=== PATIENT | male | born 1990 | race Caucasian/White ===

== ENCOUNTER 2019-05-17 16:49 | Emergency (ER) | payer OTHER ==
[2019-05-17] MEDS ORDERED: HYDROCODONE/ACETAMINOPHEN 5-325 MG TABLET PO ONE (17:46)
[2019-05-17] MEDS ORDERED: DIPH/PERTUSS(ACELL)/TETANUS VAC/PF 0.5 ML SYR (>=10YO) IM ONE (17:46)
--- NOTE | 2019-05-17 17:48 | ER Document Report ---
ED Medical Screen (RME) - General Chief Complaint: Hand Injury Stated Complaint: LEFT HAND CAUGHT IN SPRING Time Seen by Provider: 05/17/19 17:41 Notes: Patient is a 29-year-old male who presents to the emergency department with a chief complaint of left hand injury. Patient reports he was working on a garage door around 4 PM when his hand got caught in the spring system. Patient reports he does have a jagged laceration to the dorsal aspect of the left hand. Patient denies numbness or tingling to the left hand. Patient reports his tetanus shot is not up-to-date. - Related Data Allergies/Adverse Reactions: No Known Allergies Allergy (Unverified 05/17/19 17:27) Physical Exam - Vital signs Vitals: Temp Pulse Resp BP Pulse Ox 98.4 F 111 H 20 166/96 H 97 05/17/19 17:01 05/17/19 17:01 05/17/19 17:01 05/17/19 17:01 05/17/19 17:01 - Skin Notes: Patient has a jagged irregular laceration to the dorsal aspect of the left hand. There is an active ooze of blood. Patient does have multiple abrasions and other scratches to the dorsal aspect of the hand. Patient has good flexion- extension of all digits of the left hand, less than 2-second cap refill. Course - Re-evaluation Re-evalutation: 05/17/19 17:48 Wet dressing with Coban applied in triage. Will update Tdap, obtain an x-ray to rule out fracture. Patient will require copious wound irrigation and suture repair. I have greeted and performed a rapid initial assessment of this patient. A comprehensive ED assessment and evaluation of the patient, analysis of test results and completion of the medical decision making process will be conducted by additional ED providers. - Vital Signs Vital signs: Temp Pulse Resp BP Pulse Ox 98.4 F 111 H 20 166/96 H 97 05/17/19 17:01 05/17/19 17:01 05/17/19 17:01 05/17/19 17:05/17/19 17:01
--- NOTE | 2019-05-17 18:21 | RADIOLOGY REPORT (SQ) ---
EXAM DESCRIPTION: HAND LEFT 3 VIEWS COMPLETED DATE/TIME: 05/17/2019 6:08 pm REASON FOR STUDY: left hand got caught in spring of garage door,+lac COMPARISON: None. EXAM PARAMETERS: NUMBER OF VIEWS: Three views. TECHNIQUE: AP, lateral and oblique radiographic images acquired of the left hand. LIMITATIONS: None. FINDINGS: MINERALIZATION: Normal. BONES: No acute fracture or dislocation. No worrisome bone lesions. JOINTS: No effusion. SOFT TISSUES: Mild soft tissue swelling. No radiopaque foreign body. OTHER: No other significant finding. IMPRESSION: NO FRACTURE. TECHNICAL DOCUMENTATION: JOB ID: [id number] [place]-[id number] 2010 [employer]- All Rights Reserved Reading location - IP/workstation name: [email or web address]
[2019-05-17] MEDS ORDERED: LIDOCAINE 2%/EPINEPHRINE INJ 20 ML VIAL INJ ONE (21:09)
[2019-05-17] MEDS ORDERED: OXYCODONE-ACETAMINOPHEN 5-325 MG TABLET PO ONE (21:47)
[2019-05-17] MEDS ORDERED: AMOXICILLIN TR/POT CLAVULANATE 500-125 MG TAB PO ONE (21:47)
[2019-05-17] MEDS ORDERED: BACITRACIN ZINC OINTMENT 15 GM TP ONE (22:02)
--- NOTE | 2019-05-17 22:38 | ER Document Report ---
Entered by BISI LOPEZ SCRIBE 05/17/19 [id number] Acting as scribe for:ZAID BLUM IV, MD ED Hand/Wrist Injury - General Chief Complaint: Hand Injury Stated Complaint: LEFT HAND CAUGHT IN SPRING Time Seen by Provider: 05/17/19 17:41 Primary Care Provider: CHADD HAMILTON DO [ACTIVE STAFF] - 05/19/19 (CALL ON Sunday05/19/2019 TO SCHEDULE FOLLOW UP APPOINTMENT) Mode of Arrival: Ambulatory Information source: Patient Notes: This 29 year old male patient presents to the ED today with complaints of a laceration on the dorsal surface of his left hand due to an injury that occurred around 4:00 PM today. Patient states that he was working on his garage door when his left hand got caught in the spring system. Patient reports pain in that re gion, but denies any trouble moving his digits. Patient states that his tetanus shot is UTD as of this time. - Related Data Allergies/Adverse Reactions: No Known Allergies Allergy (Unverified 05/17/19 17:27) Past Medical History - Social History Smoking Status: Unknown if Ever Smoked Cigarette use (# per day): No Chew tobacco use (# tins/day): No Smoking Education Provided: No Frequency of alcohol use: Occasional Drug Abuse: None Family History: Reviewed & Not Pertinent Patient has suicidal ideation: No Patient has homicidal ideation: No Review of Systems - Review of Systems Constitutional: No symptoms reported EENT: No symptoms reported Cardiovascular: No symptoms reported Respiratory: No symptoms reported Gastrointestinal: No symptoms reported Genitourinary: No symptoms reported Male Genitourinary: No symptoms reported Musculoskeletal: See HPI, Other - Left hand pain Skin: Other - Laceration to left hand Hematologic/Lymphatic: No symptoms reported Neurological/Psychological: No symptoms reported -: Yes All other systems reviewed and negative Physical Exam - Vital signs Vitals: Temp Pulse Resp BP Pulse Ox 98.4 F 111 H 20 166/96 H 97 05/17/19 17:01 05/17/19 17:01 05/17/19 17:01 05/17/19 17:01 05/17/19 17:01 - General General appearance: Alert - HEENT Head: Normocephalic, Atraumatic Eyes: Normal Pupils: PERRL - Respiratory Respiratory status: No respiratory distress Chest status: Nontender Breath sounds: Normal Chest palpation: Normal - Cardiovascular Rhythm: Regular Heart sounds: Normal auscultation Murmur: No - Abdominal Inspection: Normal Distension: No distension Bowel sounds: Normal Tenderness: Nontender - Abdomen soft Organomegaly: No organomegaly - Back Back: Normal, Nontender - Extremities General upper extremity: Normal inspection General lower extremity: Normal inspection Hand: Other - 2 point discrimination intact in all 5 digits of the left hand. Intact flexion of 3rd-5th digit against resistance. Capillary refill < 2 sec in all digits. Putting 5th digit through full range of motion exposes the extensor tendon. Extensor tendor grossly appears intact. Small partial laceration to extensor tendon. - Neurological Neuro grossly intact: Yes - Psychological Associated symptoms: Normal affect, Normal mood - Skin Skin Temperature: Warm Skin Moisture: Dry Skin Color: Normal Skin irregularity: Laceration - 3 cm semilunate laceration on dorsal surface of left hand inferior to the space between the 4th and 5th MCP joint Course - Re-evaluation Re-evalutation: 05/17/19 21:58 Results of ED MSE discussed with patient patient's significant other. Finding of partial left fifth extensor tendon discussed with patient. Finger splint and sling ordered for the patient to keep the tendon in extension and avoid flexion. Patient was told that he needs to follow-up with the referral to Dr. Chu with hand surgery. All questions were answered. - Vital Signs Vital signs: Temp Pulse Resp BP Pulse Ox 98.4 F 111 H 20 166/96 H 97 05/17/19 17:01 05/17/19 17:01 05/17/19 17:01 05/17/19 17:01 05/17/19 17:01 - Diagnostic Test Radiology reviewed: Reports reviewed Discharge - Discharge Clinical Impression: Laceration of left hand Qualifiers: Encounter type: initial encounter Foreign body presence: without foreign body Qualified Code(s): S61.412A - Laceration without foreign body of left hand, initial encounter Extensor tendon laceration of hand with open wound Qualifiers: Encounter type: initial encounter Laterality: left Qualified Code(s): S66.822A - Laceration of other specified muscles, fascia and tendons at wrist and hand level, left hand, initial encounter; S61.402A - Unspecified open wound of left hand, initial encounter Condition: Good Disposition: HOME, SELF-CARE Instructions: Laceration Care ([facility]) Additional Instructions: Return to the Emergency Department without delay if any worse. Tendon Laceration Your cut damaged an underlying tendon. The tendon has been repaired but will not be strong enough for normal use for about four weeks. The goals of treatment will be protection from stress, and restoring mobility once the tendon has healed. Usually a splint will be used to immobilize the tendon. If so, it should NOT be removed without the doctor's permission. [id number] exercises will be prescribed when your doctor decides the tendon is ready for them. This depends on the location and severity of the tendon laceration. If you don't understand what you should do at any point during treatment, call for instructions. Hand Laceration A laceration on the hand can present special problems. It may be difficult to keep the wound dry. Motion of the fingers can disturb the healing edges. Your work may involve exposure to damaging chemicals or water. Keep the wound clean and dry. If you can't keep the cut dry, undisturbed, and free of chemical exposure, please discuss this with the doctor. If any water or chemical gets onto the dressing, remove it, blot the wound dry, then apply a fresh bandage. Dressings should be changed every day. If you feel the stitches pulling as you move the hand, a splint or other form of protection is needed. If any signs of infection occur (swelling, redness, increasing tenderness, red streaks, tender lumps in the armpit, or fever), see the doctor immediately. HOME CARE INSTRUCTIONS & INFORMATION: Thank you for choosing us for your medical needs. We hope you're satisfied with the care you received. After you leave, you must properly care for your problem and, at the same time, observe its progress. Any condition can change. Some illnesses can change rapidly over hours or days. If your condition worsens, return to the Emergency Department or see your physician promptly. ABOUT YOUR X-RAYS AND EKG'S: If you had an EKG or X-rays taken, they have been read by the Emergency Physician. The X-rays and EKG's will also be read by a Radiologist or Corrugator Helper within 24 hours. If discrepancies are noted, you will be notified by telephone. Please be certain the ED has a correct telephone number & address where you can be reached. Also, realize that some fractures or abnormalities do not show up on initial X-rays. If your symptoms continue, see your physician. ABOUT YOUR LABORATORY TEST: If you had laboratory tests, the results have been reviewed by the Emergency Physician. Some test results (for example cultures) may not be available for several days. You will be contacted if any test result shows you need additional treatment. Please be certain the ED has a correct telephone number and address where you can be reached. ABOUT YOUR MEDICATIONS: You will receive instructions on how to take your medicine on the prescription label you receive. Additional information may be provided by the Pharmacy. If you have questions afterwards, call the ED for clarification or further instructions. Some prescribed medications may cause drowsiness. Do not perform tasks such as driving a car or operating machinery without consulting your Pharmacist. If you feel you need a refill of pain medication, your condition will need re-evaluation. Please do not call for a refill of any medication. ABOUT YOUR SIGNATURE: Signature of this document acknowledges to followin. Understanding that you received emergency treatment and that you may be released before al medical problems are known or treated. Please be certain the ED has a correct phone number & address where you can be reached. 2. Acknowledgement that you will arrange for follow-up care as recommended. 3. Authorization for the Emergency Physician to provide information to your follow-up Physician in order to maximize your care. AT ANY TIME, IF YOUR SYMPTOMS CHANGE SIGNIFICANTLY OR WORSEN OR YOU DEVELOP NEW SYMPTOMS, RETURN TO THE EMERGENCY DEPARTMENT IMMEDIATELY FOR RE-EVALUATION. OUR GOAL IS TO PROVIDE EXCELLENT MEDICAL CARE! WE HOPE THAT WE HAVE MET YOUR EXPECTATIONS DURING YOUR EMERGENCY DEPARTMENT VISIT AND THAT YOU FEEL YOU HAVE RECEIVED EXCELLENT CARE! Prescriptions: Oxycodone HCl/Acetaminophen [Percocet 5-325 mg Tablet] 1 tab PO Q6HP PRN #20 tablet PRN Reason: PAIN Oxycodone HCl/Acetaminophen [Percocet 5-325 mg Tablet] 1 tab PO Q6HP PRN #20 tablet PRN Reason: Amox Tr/Potassium Clavulanate [Augmentin 875-125 mg Tablet] 1 tab PO BID #20 tablet Amox Tr/Potassium Clavulanate [Augmentin 875-125 Tablet] 1 tab PO BID 10 Days tablet Forms: Return to Work Referrals: CHADD HAMILTON DO [ACTIVE STAFF] - 05/19/19 (CALL ON Sunday05/19/2019 TO SCHEDULE FOLLOW UP APPOINTMENT) I personally performed the services described in the documentation, reviewed and edited the documentation which was dictated to the scribe in my presence, and it accurately records my words and actions.
[2019-05-17] MEDS ORDERED: HYDROCODONE/ACETAMINOPHEN 5-325 MG (6 TAB/ER DISP) PO PRN (22:44)
[2019-05-17] MEDS ORDERED: LEVOFLOXACIN 750 MG TABLET PO ONE (22:45)
[2019-05-17 23:01] VITALS: BP 135/84
== END 2019-05-17 23:03 | disposition home or self-care (01) ==
LOC: ER 16:49
DX: S61.412A Laceration without foreign body of left hand, initial encounter (principal); S66.822A Laceration of other specified muscles, fascia and tendons at wrist and hand level, left hand, initial encounter; W26.8XXA Contact with other sharp object(s), not elsewhere classified, initial encounter; Y92.009 Unspecified place in unspecified non-institutional (private) residence as the place of occurrence of the external cause; Z23 Encounter for immunization
CPT/HCPCS: 99283; 90471; 73130; 90715; J3490

== ENCOUNTER 2019-05-27 11:14 | Day surgery (SDC) | payer OTHER ==
[~2019-05-27 11:14] MED LIST: CEFAZOLIN SODIUM 2 GM in DEXTROSE 5%-WATER 100 ML IV PRN; DEXAMETHASONE SOD PHOSPHATE INJ 4 MG/1 ML VIAL ONE; FENTANYL CITRATE INJ/PF 100 MCG/2 ML AMPUL ONE; MIDAZOLAM 2 MG/2 ML INJ ONE; ONDANSETRON HCL INJ/PF 4 MG/2 ML SDV ONE; PROPOFOL INJ 200 MG/20 ML VIAL IV ONE
[2019-05-27] MEDS ORDERED: MIDAZOLAM 2 MG/2 ML INJ ONE (12:18)
[2019-05-27 12:31] LABS: ABSOLUTE EOSINOPHILS # (AUTO) 0.1 10^3/uL (0.0-0.6); ABSOLUTE LYMPHOCYTES (AUTO) 1.6 10^3/uL (0.5-4.7); ABSOLUTE MONOCYTES (AUTO) 0.4 10^3/uL (0.1-1.4); ABSOLUTE NEUT (AUTO) 3.5 10^3/uL (1.7-8.2); BASOPHILS % (AUTO) 0.8 % (0-2); EOSINOPHILS % (AUTO) 2.3 % (0-6); HEMATOCRIT 48.4 % (37.9-51.0); HEMOGLOBIN 16.7 g/dL (13.5-17.0); LYMPHOCYTES % (AUTO) 28.2 % (13-45); MEAN CORPUSCULAR HEMOGLOBIN 30.8 pg (27.0-33.4); MEAN CORPUSCULAR HGB CONC 34.5 g/dL (32.0-36.0); MEAN CORPUSCULAR VOLUME 89 fl (80-97); MONOCYTES % (AUTO) 6.5 % (3-13); PLATELET COUNT 148 10^3/uL (150-450); RED BLOOD COUNT 5.42 10^6/uL (4.35-5.55); RED CELL DISTRIBUTION WIDTH 12.6 % (11.5-14.0); SEGMENTED NEUTROPHILS % (AUTO) 62.2 % (42-78); TOTAL CELLS COUNTED % (AUTO) 100 %; WHITE BLOOD COUNT 5.5 10^3/uL (4.0-10.5)
[2019-05-27 12:59] LABS: ANION GAP 8 (5-19); BLOOD UREA NITROGEN 17 mg/dL (7-20); CALCIUM 9.8 mg/dL (8.4-10.2); CARBON DIOXIDE 26 mmol/L (22-30); CHLORIDE 104 mmol/L (98-107); GLUCOSE 90 mg/dL (75-110); POTASSIUM 4.9 mmol/L (3.6-5.0)
[2019-05-27] MEDS ORDERED: BUPIVACAINE HCL 0.5 % INJ/PF 30 ML SDV ONE (15:10)
[2019-05-27] MEDS ORDERED: ONDANSETRON HCL INJ/PF 4 MG/2 ML SDV IV PRN (15:46)
[2019-05-27] MEDS ORDERED: MORPHINE SULFATE 10 MG/ML INJ IV PRN ×2 (15:46→16:16)
[2019-05-27] MEDS ORDERED: DIPHENHYDRAMINE HCL 50 MG/ML VIAL IV PRN (15:46)
[2019-05-27] MEDS ORDERED: MEPERIDINE HCL/PF INJ 25 MG/1 ML DISP.SYRIN IV PRN (15:46)
[2019-05-27] MEDS ORDERED: PROMETHAZINE HCL INJ 25 MG/1 ML VIAL IV PRN ×2 (15:46)
[2019-05-27] MEDS ORDERED: FENTANYL CITRATE INJ/PF 100 MCG/2 ML AMPUL IV PRN ×3 (15:46)
--- NOTE | 2019-05-27 16:08 | Operative Report ---
Operative Report DATE OF SURGERY: 05/27/19 PREOPERATIVE DIAGNOSIS: Left hand extensor tendon laceration POSTOPERATIVE DIAGNOSIS: Left hand EDM extensor tendon laceration zone OPERATION: Repair Left hand EDM extensor tendon laceration zone SURGEON: CHADD HAMILTON ANESTHESIA: GA COMPLICATIONS: None ESTIMATED BLOOD LOSS: Minimal PROCEDURE: Indication for above procedure: 29-year-old male who sustained a laceration to his left hand when he was attempting to fix his garage door when the spring cut the back of his hand. Patient was seen in the emergency room the area was irrigated and loosely closed he was told he had an extensor tendon laceration. Patient notable weakness of the fourth and fifth digits with extension. At that point decision was made to proceed with operative intervention. Procedure in detail: Patient was seen and evaluated in the preoperative holding area. The upper extremity was initialized and marked. Patient received 2g of Ancef IV for bacterial prophylaxis. Patient was taken back to the operative room where transferred to the operative table and placed under general anesthesia. Once they were adequately anesthetized a nonsterile tourniquet was placed on the upper extremity. A surgical team debriefing was performed ensuring all instrumentation was available, the surgical procedure was discussed with possible concerns reviewed. The upper extremity was prepped with chlorhexidine and alcohol and draped in a sterile fashion. A timeout was done identifying correct patient, procedure and extremity everyone in attendance agree with this and verbalized no concerns. The extremity was exsanguinated the tourniquet was inflated to 250 mmHg. Patient sutures were removed and excision extended proximally and distally. Blunt dissection was performed. A peripheral veins were coagulated bipolar cautery. Exploration demonstrated oblique/longitudinal laceration of the EDM tendon. EDC to the fifth was partially disrupted but no full-thickness laceration. No evidence of EDC-4 involvement. Wound was copiously irrigated with normal saline. Any nonviable tissue was excised. Extensor tendon was repaired with 4-0 fiber loop suture utilizing horizontal mattress stitches. At completion patient had full tenodesis without evidence of extension lag. There is no gapping of the repair with range of motion. Wound was once again irrigated with normal saline. Nonviable skin edges were debrided and skin was closed with interrupted 4-0 nylon suture. 20 cc of 0.5% bupivacaine without epinephrine was injected for postoperative pain control. Wound was dressed with Xeroform, 4 x 4's was placed in a volar resting splint maintaining full extension of the fourth/fifth MCP joint with the IP joints free. Sponge counts, instrument counts, needle counts were correct. Patient was then awoken from anesthesia. Transferred from the operating room table to the operating room stretcher. There was no intraoperative complications patient tolerated procedure well stable to PACU. Postoperative plan: Patient will follow-up the office in 2 weeks we will begin occupational therapy as per extensor tendon active protocol.
[2019-05-27] MEDS: FENTANYL CITRATE INJ/PF 100 MCG/2 ML AMPUL ONE ×2 (16:15→16:20)
[2019-05-27] MEDS ORDERED: OXYCODONE-ACETAMINOPHEN 5-325 MG TABLET PO PRN (16:16)
--- NOTE | 2019-05-27 16:16 | Discharge Summary ---
Discharge Summary (SDC) - Discharge Final Diagnosis: Extensor tendon laceration left hand Date of Surgery: 05/27/19 Discharge Date: 05/27/19 Condition: Serious Forms: ASU Anesthesia D/C Instruction, Discharge POC-Surgical Service Treatment or Instructions: Schedule Follow Up w/ Dr. Manpreet Hamilton @ [facility] for Surgery to be seen in 10-14 days or as scheduled [place]: [place]: [place]: Ice and elevate Keep splint clean/dry/intact, do not remove. If your fingers become numb please unwrap the Florentin wrap but leave the splint in place, if the sensation does not return within 30 minutes please return to the emergency department. May begin finger range of motion attempting to make full fist. Please use ibuprofen (Motrin or Advil) 600-800 mg every 8 hours as needed for pain or fever DO NOT TAKE w/ TORADOL may use once TORADOL complete. You may also use acetaminophen (Tylenol) 1000 mg every 4-6 hours as needed for pain or fever. Please be aware that many medications contain acetaminophen, do not exceed a total of 1000 mg of acetaminophen every 6 hours. If ibuprofen and acetaminophen are not sufficient for your pain you may take the Percocet/Ronan. Please be aware that the Percocet/Ronan does contain Tylenol. Stool softener of choice when on pain medication. USE OF [id number] IBUPROFEN: Ibuprofen (Advil, Nuprin, Medipren, Motrin IB) is a medication for fever and pain control. In addition, it has anti- inflammatory effects which may be beneficial, especially in the treatment of injuries. It's best to take ibuprofen with food. Persons with ulcer disease or allergy to aspirin should notify their physician of this before taking ibuprofen. Ibuprofen can be given every four to six hours, for a total of four doses daily. Age Pain or fever dose Antiinflammatory dose 6-8 yr 200 mg (1 tab) 200 mg (1 tab) 9-11 yr 200 mg (1 tab) 200-400 mg (1-2 tab) 11-14 yr 200-400 mg (1-2 tab) 400 mg (2 tab) 15-adult 400 mg (2 tab) 600 mg (3 tab) ORAL NARCOTIC MEDICATION: You have been given a prescription for pain control. This medication is a narcotic. It's best taken with food, as nausea can result if taken on an empty stomach. Don't operate machinery or drive within six hours of taking this medication. Do not combine this medicine with alcohol, or with any medication which can cause sedation (such as cold tablets or sleeping pills) unless you get permission from the physician. Narcotics tend to cause constipation. If possible, drink plenty of fluids and eat a diet high in fiber and fruits. Please be aware that prescription narcotics also have the potential for abuse. People become addicted to these medications because of the general sense of wellbeing that they induce. This feeling along with a significant reduction in tension, anxiety, and aggression provides a stimulating seductive quality to these drugs. Once your pain is under control, we encourage you to discard your unused narcotics. Prescriptions: Oxycodone HCl/Acetaminophen [Percocet 5-325 mg Tablet] 1 tab PO Q6 PRN #15 tab PRN Reason: Referrals: MANPREET HAMILTON DO [ACTIVE STAFF] - 06/09/19 8:00 am Discharge Diet: As Tolerated Respiratory Treatments at Home: Deep Breathing/Coughing Discharge Activity: No Lifting Over 10 Pounds, No Lifting/Push/Pulling Report the Following to Your Physician Immediately: Fever over 101 Degrees, Unusual Bleeding, Redness, Swelling, Warmth
--- NOTE | 2019-05-27 16:25 | EKG REPORT ---
SEVERITY:- NORMAL ECG - SINUS RHYTHM : Confirmed by: Yani Ware MD 27-May-2019 16:24:13
[2019-05-27] MEDS ORDERED: ACETAMINOPHEN 1,000 MG/100 ML RTUPB IV ONE (16:40)
[2019-05-27] MEDS ORDERED: KETOROLAC TROMETHAMINE INJ/PF 30 MG/1 ML SDV ONE (16:40)
[2019-05-27] MEDS ORDERED: OXYCODONE-ACETAMINOPHEN 5-325 MG TABLET ONE (17:05)
[2019-05-27 18:15] VITALS: BP 128/84
== END 2019-05-27 18:10 | disposition home or self-care (01) ==
LOC: OROUT 11:14
PROVIDERS: ATTEND Orthopaedic Surgery
DX: S66.323A Laceration of extensor muscle, fascia and tendon of left middle finger at wrist and hand level, initial encounter (principal); S66.325A Laceration of extensor muscle, fascia and tendon of left ring finger at wrist and hand level, initial encounter; S66.327A Laceration of extensor muscle, fascia and tendon of left little finger at wrist and hand level, initial encounter; S61.213A Laceration without foreign body of left middle finger without damage to nail, initial encounter; S61.215A Laceration without foreign body of left ring finger without damage to nail, initial encounter; S61.217A Laceration without foreign body of left little finger without damage to nail, initial encounter; S61.412A Laceration without foreign body of left hand, initial encounter; X58.XXXA Exposure to other specified factors, initial encounter; M79.642 Pain in left hand; F17.210 Nicotine dependence, cigarettes, uncomplicated
CPT/HCPCS: 36415; 85025; 80048; 93005; 93010; 01810; 26410; J2250; J3490; J0690; J1100; J3010; J1885; J2405; J7060; J2704; J0131; 1810